=== PATIENT | female | born 1950 | race Caucasian/White ===

== ENCOUNTER → 2017-08-06 | Outpatient (CLI) | payer MEDICARE, BC ==
--- NOTE | 2017-08-07 08:45 | RSPPFT ---
DATE OF PROCEDURE: 08/06/17 COMMENTS: Spirometry with FVC of 2.2 predicted 2.5, FEV1 of 1.0 predicted 2.0, FEV1/FVC ratio 45% predicted 83%. Post-bronchodilator FVC increases to 2.5 and FEV1 to 1.1. Patient has increased airways resistance. Air trapping is present with RV at 3.6 predicted 1.9. DLCO is 37% of predicted. IMPRESSION: On the basis of the above, patient has an obstructive lung defect with responsiveness to acutely inhaled bronchodilator.
== END ==
LOC: HRSP 08:39
PROVIDERS: ATTEND Internal Medicine
DX: J44.9 Chronic obstructive pulmonary disease, unspecified (principal); Z87.891 Personal history of nicotine dependence
CPT/HCPCS: 94060; 94726; 94729